=== PATIENT | female | born 2000 | race Caucasian/White ===

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

== ENCOUNTER 2023-03-18 22:06 | Inpatient (IN) | payer BC ==
[2023-03-18 23:20] LABS: Basophils % (A) 1 %; Eosinophils # (A) 0.1 k/uL (0-0.7); Eosinophils % (A) 1 %; HCT 46.2 % (34.0-46.0); HGB 15.9 gm/dL (11.4-16.0); Lymphocytes # (A) 3.5 k/uL (1.0-4.8); Lymphocytes % (A) 39 %; MCH 30.6 pg (25.0-35.0); MCHC 34.3 g/dL (31.0-37.0); MCV 89.2 fL (80.0-100.0); Mean Platelet Volume 7.4; Monocytes # (A) 0.4 k/uL (0-1.0); Monocytes % (A) 5 %; Neutrophils # (A) 4.6 k/uL (1.3-7.7); Neutrophils % (A) 52 %; Platelet Count 412 k/uL (150-450); RBC 5.18 m/uL (3.80-5.40); RDW 12.3 % (11.5-15.5); WBC 8.8 k/uL (3.8-10.6)
--- NOTE | 2023-03-18 23:31 | ED ---
General Adult HPI - General Chief complaint: Extremity Problem,Nontraumatic Stated complaint: Bilaterlal leg numbness Time Seen by Provider: 03/18/23 22:32 Source: patient, RN notes reviewed, old records reviewed Mode of arrival: ambulatory Limitations: no limitations - History of Present Illness Initial comments: 22-year-old female presenting with bilateral lower extremity numbness. Patient noticed this numbness around 4 PM today. She had not noticed any symptoms prior to this. She was evaluated by her mother who is a nurse. Checked for painful stimuli in both legs and noted that there was no sensation. Patient denied any weakness in the legs. She was ambulatory and came to the emergency room through walk in triage. She states she had an upper respiratory infection, nasal congestion and cough one week ago. She had subjective fever and chills at the time. No vomiting or diarrhea. Patient denies any chronic medical conditions. No history of MS. Patient denies chest pain or abdominal pain. She has some mild left-sided low back pain. No injury. No difficulty breathing. Denies current . - Related Data Allergies Allergy/AdvReac Type Severity Reaction Status Date / Time No Known Allergies Allergy Verified 03/18/23 22:21 Review of Systems ROS Statement: Those systems with pertinent positive or pertinent negative responses have been documented in the HPI. ROS Other: All systems not noted in ROS Statement are negative. Past Medical History Past Medical History: No Reported History History of Any Multi-Drug Resistant Organisms: None Reported Past Surgical History: No Surgical Hx Reported Past Psychological History: No Psychological Hx Reported Smoking Status: Current every day smoker Past Alcohol Use History: Occasional Past Drug Use History: None Reported General Exam Limitations: no limitations General appearance: alert, in no apparent distress Head exam: Present: atraumatic, normocephalic Eye exam: Present: normal appearance, PERRL ENT exam: Present: normal exam Neck exam: Present: normal inspection. Absent: tenderness, meningismus Respiratory exam: Present: normal lung sounds bilaterally. Absent: respiratory distress, wheezes Cardiovascular Exam: Present: regular rate, normal rhythm GI/Abdominal exam: Present: soft. Absent: distended, tenderness, guarding Extremities exam: Present: normal inspection, normal capillary refill. Absent: pedal edema, calf tenderness Neurological exam: Present: alert, oriented X3, CN II-XII intact, motor sensory deficit (Patient has no sensation to the bilateral lower legs. She has absent patellar reflexes. 5 out of 5 strength in both lower extremities.) Psychiatric exam: Present: flat affect Skin exam: Present: warm, dry, intact Course Vital Signs 03/18/23 03/18/23 03/18/23 22:17 22:45 23:50 Temperature 98.4 F 98.6 F Pulse Rate 76 80 87 Respiratory 20 16 16 Rate Blood Pressure 133/80 133/86 124/77 O2 Sat by Pulse 100 100 98 Oximetry - Reevaluation(s) Reevaluation #1: 03/18/23 [address] Cristiano Costa, covering for neurology. Recommendations made for initial workup in the emergency department. And plan to admit the patient for further evaluation. Medical Decision Making - Medical Decision Making Was pt. sent in by a medical professional or institution (, PA, CARPENTRY INSTRUCTOR, urgent care, hospital, or halfway...) When possible be specific @ -[No] Did you speak to anyone other than the patient for history (EMS, parent, family, police, friend...)? What history was obtained from this source @ -[No] Did you review nursing and triage notes (agree or disagree)? Why? @ -[I reviewed and agree with nursing and triage notes] Were old charts reviewed (outside hosp., previous admission, EMS record, old EKG, old radiological studies, urgent care reports/EKG's, halfway records)? Report findings @ -[No old charts were reviewed] Differential Diagnosis (chest pain, altered mental status, abdominal pain women, abdominal pain men, vaginal bleeding, weakness, fever, dyspnea, syncope, headache, dizziness, GI bleed, back pain, seizure, CVA, palpatations, mental health, musculoskeletal)? @ -Differential CVA Guillain-Jonas, transverse myelitis, Ischemic stroke, hemorrhagic stroke, brain tumor, atypical migraine, Wernicke's encephalopathy, seizure, multiple sclerosis, meningitis, encephalitis, hypoglycemia,, electrolytes disturbance, myasthenia gravis.... This is not meant to be an all-inclusive list EKG interpreted by me (3pts min.). @ Sinus rhythm rate of 71, MS interval 160, QRS duration 81, QTC [address] segment changes X-rays interpreted by me (1pt min.). @ -[Chest x-ray negative for acute cardiac primary findings CT interpreted by me (1pt min.). @ -CT brain negative for intracranial hemorrhage or mass effect U/S interpreted by me (1pt. min.). @ -[None done] What testing was considered but not performed or refused? (CT, X-rays, U/S, lab s)? Why? @ -[None] What meds were considered but not given or refused? Why? @ -[None] Did you discuss the management of the patient with other professionals (professionals i.e. , PA, CARPENTRY INSTRUCTOR, lab, RT, psych nurse, social science professor, account engineer, teacher, co founder and chief strategy officer, shelter case manager)? Give summary @ -[No] Was smoking cessation discussed for >3mins.? @ -[No] Was critical care preformed (if so, how long)? @ -[No] Were there social determinants of health that impacted care today? How? (Homelessness, low income, unemployed, alcoholism, drug addiction, transportation, low edu. Level, literacy, decrease access to med. care, snf, rehab)? @ -[No] Was there de-escalation of care discussed even if they declined (Discuss DNR or withdrawal of care, Hospice)? DNR status @ -[No] What co-morbidities impacted this encounter? (DM, HTN, Smoking, COPD, CAD, Cancer, CVA, ARF, Chemo, Hep., AIDS, mental health diagnosis, sleep apnea, morbid obesity)? @ -[None] Was patient admitted / discharged? Hospital course, mention meds given and route, prescriptions, significant lab abnormalities, going to OR and other per tinent info. @ -22-year-old female with bilateral leg numbness. Strength is 5 out of 5 in the bilateral lower extremities. She has no patellar reflexes. Patient received workup in the emergency department which showed some mild disc bulging the lumbar spine but otherwise workup is negative including CBC, CMP, ESR, CRP, urinalysis, viral panel. Patient will be admitted for neurology consultation. Concern for Guillain-Jonas Undiagnosed new problem with uncertain prognosis? @ -[No] Drug Therapy requiring intensive monitoring for toxicity (Heparin, Nitro, Insulin, Cardizem)? @ -[No] Were any procedures done? @ -[No] Diagnosis/symptom? @ Bilateral lower externally numbness Acute, or Chronic, or Acute on Chronic? @ -Acute Uncomplicated (without systemic symptoms) or Complicated (systemic symptoms)? @ -Complicated Side effects of treatment? @ -[No] Exacerbation, Progression, or Severe Exacerbation? @ -[No] Poses a threat to life or bodily function? How? (Chest pain, USA, IA, pneumonia, PE, COPD, DKA, ARF, appy, cholecystitis, CVA, Diverticulitis, Homicidal, Suicidal, threat to staff... and all critical care pts) @ -Yes, progressive numbness, development of weakness, respiratory failure - Lab Data Result diagrams: 03/18/23 23:12 03/18/23 23:12 Lab Results 03/18/23 03/18/23 03/18/23 Range/Units 23:10 23:12 23:12 WBC 8.8 (3.8-10.6) k/uL RBC 5.18 (3.80-5.40) m/uL Hgb 15.9 (11.4-16.0) gm/dL Hct 46.2 H (34.0-46.0) % MCV 89.2 (80.0-100.0) fL MCH 30.6 (25.0-35.0) pg MCHC 34.3 (31.0-37.0) g/dL RDW 12.3 (11.5-15.5) % Plt Count 412 (150-450) k/uL MPV 7.4 Neutrophils % 52 % Lymphocytes % 39 % Monocytes % 5 % Eosinophils % 1 % Basophils % 1 % Neutrophils # 4.6 (1.3-7.7) k/uL Lymphocytes # 3.5 (1.0-4.8) k/uL Monocytes # 0.4 (0-1.0) k/uL Eosinophils # 0.1 (0-0.7) k/uL Basophils # 0.0 (0-0.2) k/uL ESR 5 (0-20) mm/hr PT 9.9 (9.0-12.0) sec INR 0.9 (<1.2) APTT 26.1 (22.0-30.0) sec Sodium (137-145) mmol/L Potassium (3.5-5.1) mmol/L Chloride (98-107) mmol/L Carbon Dioxide (22-30) mmol/L Anion Gap mmol/L BUN (7-17) mg/dL Creatinine (0.52-1.04) mg/dL Est GFR (CKD-EPI)AfAm (>60 ml/min/1.73 sqM) Est GFR (CKD-EPI)NonAf (>60 ml/min/1.73 sqM) Glucose (74-99) mg/dL Plasma Lactic Acid Stanley (0.7-2.0) mmol/L Calcium (8.4-10.2) mg/dL Total Bilirubin (0.2-1.3) mg/dL AST (14-36) U/L ALT (4-34) U/L Alkaline Phosphatase (38-126) U/L Troponin I (0.000-0.034) ng/mL C-Reactive Protein (<1.0) mg/dL Total Protein (6.3-8.2) g/dL Albumin (3.5-5.0) g/dL Urine Color Urine Appearance (Clear) Urine pH (5.0-8.0) Ur Specific [place] (1.001-1.035) Urine Protein (Negative) Urine Glucose (UA) (Negative) Urine Ketones (Negative) Urine Blood (Negative) Urine Nitrite (Negative) Urine Bilirubin (Negative) Urine Urobilinogen (<2.0) mg/dL Ur Leukocyte Esterase (Negative) Urine HCG, Qual (Not Detectd) Influenza Type A (PCR) Not Detected (Not Detectd) Influenza Type B (PCR) Not Detected (Not Detectd) RSV (PCR) Not Detected (Not Detectd) SARS-CoV-2 (PCR) Not Detected (Not Detectd) 03/18/23 03/18/23 03/18/23 Range/Units 23:12 23:12 23:12 WBC (3.8-10.6) k/uL RBC (3.80-5.40) m/uL Hgb (11.4-16.0) gm/dL Hct (34.0-46.0) % MCV (80.0-100.0) fL MCH (25.0-35.0) pg MCHC (31.0-37.0) g/dL RDW (11.5-15.5) % Plt Count (150-450) k/uL MPV Neutrophils % % Lymphocytes % % Monocytes % % Eosinophils % % Basophils % % Neutrophils # (1.3-7.7) k/uL Lymphocytes # (1.0-4.8) k/uL Monocytes # (0-1.0) k/uL Eosinophils # (0-0.7) k/uL Basophils # (0-0.2) k/uL ESR (0-20) mm/hr PT (9.0-12.0) sec INR (<1.2) APTT (22.0-30.0) sec Sodium 139 (137-145) mmol/L Potassium 4.0 (3.5-5.1) mmol/L Chloride 101 (98-107) mmol/L Carbon Dioxide 24 (22-30) mmol/L Anion Gap 14 mmol/L BUN 16 (7-17) mg/dL Creatinine 0.81 (0.52-1.04) mg/dL Est GFR (CKD-EPI)AfAm >90 (>60 ml/min/1.73 sqM) Est GFR (CKD-EPI)NonAf >90 (>60 ml/min/1.73 sqM) Glucose 94 (74-99) mg/dL Plasma Lactic Acid Stanley 0.8 (0.7-2.0) mmol/L Calcium 9.9 (8.4-10.2) mg/dL Total Bilirubin 0.4 (0.2-1.3) mg/dL AST 28 (14-36) U/L ALT 62 H (4-34) U/L Alkaline Phosphatase 79 (38-126) U/L Troponin I <0.012 (0.000-0.034) ng/mL C-Reactive Protein <0.5 (<1.0) mg/dL Total Protein 9.2 H (6.3-8.2) g/dL Albumin 5.2 H (3.5-5.0) g/dL Urine Color Urine Appearance (Clear) Urine pH (5.0-8.0) Ur Specific [place] (1.001-1.035) Urine Protein (Negative) Urine Glucose (UA) (Negative) Urine Ketones (Negative) Urine Blood (Negative) Urine Nitrite (Negative) Urine Bilirubin (Negative) Urine Urobilinogen (<2.0) mg/dL Ur Leukocyte Esterase (Negative) Urine HCG, Qual (Not Detectd) Influenza Type A (PCR) (Not Detectd) Influenza Type B (PCR) (Not Detectd) RSV (PCR) (Not Detectd) SARS-CoV-2 (PCR) (Not Detectd) 03/18/23 03/18/23 Range/Units 23:23 23:23 WBC (3.8-10.6) k/uL RBC (3.80-5.40) m/uL Hgb (11.4-16.0) gm/dL Hct (34.0-46.0) % MCV (80.0-100.0) fL MCH (25.0-35.0) pg MCHC (31.0-37.0) g/dL RDW (11.5-15.5) % Plt Count (150-450) k/uL MPV Neutrophils % % Lymphocytes % % Monocytes % % Eosinophils % % Basophils % % Neutrophils # (1.3-7.7) k/uL Lymphocytes # (1.0-4.8) k/uL Monocytes # (0-1.0) k/uL Eosinophils # (0-0.7) k/uL Basophils # (0-0.2) k/uL ESR (0-20) mm/hr PT (9.0-12.0) sec INR (<1.2) APTT (22.0-30.0) sec Sodium (137-145) mmol/L Potassium (3.5-5.1) mmol/L Chloride (98-107) mmol/L Carbon Dioxide (22-30) mmol/L Anion Gap mmol/L BUN (7-17) mg/dL Creatinine (0.52-1.04) mg/dL Est GFR (CKD-EPI)AfAm (>60 ml/min/1.73 sqM) Est GFR (CKD-EPI)NonAf (>60 ml/min/1.73 sqM) Glucose (74-99) mg/dL Plasma Lactic Acid Stanley (0.7-2.0) mmol/L Calcium (8.4-10.2) mg/dL Total Bilirubin (0.2-1.3) mg/dL AST (14-36) U/L ALT (4-34) U/L Alkaline Phosphatase (38-126) U/L Troponin I (0.000-0.034) ng/mL C-Reactive Protein (<1.0) mg/dL Total Protein (6.3-8.2) g/dL Albumin (3.5-5.0) g/dL Urine Color Yellow Urine Appearance Clear (Clear) Urine pH 6.0 (5.0-8.0) Ur Specific [place] 1.019 (1.001-1.035) Urine Protein Negative (Negative) Urine Glucose (UA) Negative (Negative) Urine Ketones Negative (Negative) Urine Blood Negative (Negative) Urine Nitrite Negative (Negative) Urine Bilirubin Negative (Negative) Urine Urobilinogen <2.0 (<2.0) mg/dL Ur Leukocyte Esterase Negative (Negative) Urine HCG, Qual Not Detected (Not Detectd) Influenza Type A (PCR) (Not Detectd) Influenza Type B (PCR) (Not Detectd) RSV (PCR) (Not Detectd) SARS-CoV-2 (PCR) (Not Detectd) Disposition Clinical Impression: Bilateral leg numbness Disposition: ADMITTED IP TO THIS [facility] Condition: Stable Is patient prescribed a controlled substance at d/c from ED?: No Referrals: Raquel Paniagua DO [Primary Care Provider] - 1-2 days Time of Disposition: 00:53
[2023-03-18 23:32] LABS: INR 0.9 (<1.2)
[2023-03-18 23:33] LABS: ALT 62 U/L (4-34); AST 28 U/L (14-36); African American GFR (CKD) >90 (>60 ml/min/1.73 sqM); Albumin 5.2 g/dL (3.5-5.0); Alkaline Phosphatase 79 U/L (38-126); Anion Gap 14 mmol/L; Blood Urea Nitrogen 16 mg/dL (7-17); C Reactive Protein <0.5 mg/dL (<1.0); Calcium 9.9 mg/dL (8.4-10.2); Carbon Dioxide 24 mmol/L (22-30); Chloride 101 mmol/L (98-107); Glucose 94 mg/dL (74-99); Non-African American GFR(CKD) >90 (>60 ml/min/1.73 sqM); Partial Thromboplastin Time 26.1 sec (22.0-30.0); Prothrombin Time 9.9 sec (9.0-12.0); Sodium 139 mmol/L (137-145); Total Bilirubin 0.4 mg/dL (0.2-1.3); Total Protein 9.2 g/dL (6.3-8.2)
[2023-03-18 23:40] LABS: Appearance,Urine Clear (Clear); Bilirubin,Urine Negative (Negative); Blood,Urine Negative (Negative); Color,Urine Yellow; Glucose,Urine (UA) Negative (Negative); Ketones,Urine Negative (Negative); Leukocyte Esterase,Urine Negative (Negative); Nitrite,Urine Negative (Negative); Protein,Urine Negative (Negative); Specific Gravity,Urine 1.019 (1.001-1.035); Urobilinogen,Urine <2.0 mg/dL (<2.0)
--- NOTE | 2023-03-19 00:19 | CT ---
EXAMINATION TYPE: CT brain wo con DATE OF EXAM: 03/19/2023 COMPARISON: None INDICATION: Bilateral leg numbness DLP: mGycm, Automated exposure control for dose reduction was used. CONTRAST: None CT of the brain is performed utilizing 3 mm thick sections through the posterior fossa and 3 mm thick sections through the remaining calvarium. Study is performed within 24 hours of arrival to the hosp ital. No abnormal hyperdensity is present to suggest an acute intracranial hemorrhage. No mass lesion is evident. No acute infarcts are evident. Ventricles and sulci are appropriate for the patient age. Paranasal sinuses and mastoid air cells within the [id number] are clear. IMPRESSIONS: 1. No acute intracranial process. Follow-up MRI can be performed as clinically indicated.
--- NOTE | 2023-03-19 00:20 | XR ---
EXAMINATION TYPE: XR chest 2V DATE OF EXAM: 03/19/2023 COMPARISON: None INDICATION: Weakness TECHNIQUE: Frontal and lateral views of the chest are obtained. FINDINGS: The heart size is normal. The pulmonary vasculature is normal. The lungs are clear. IMPRESSION: 1. No acute pulmonary process.
--- NOTE | 2023-03-19 00:24 | CT ---
EXAMINATION TYPE: CT lumbar spine wo con DATE OF EXAM: 03/19/2023 COMPARISON: None HISTORY: Bilateral lower extremity weakness CT DLP: 1138.6 mGycm CONTRAST: None TECHNIQUE: CT of the lumbar spine is performed on a spiral scan at 3 mm thick sections. Reconstructed images are performed in the coronal and sagittal planes. FINDINGS: T12-L1: No focal disc herniation or significant disc bulge is evident. No spinal canal stenosis or neural foraminal stenosis is present. L1-L2: No focal disc herniation or significant disc bulge is evident. No spinal canal stenosis or n eural foraminal stenosis is present L2-L3: Broad-based disc bulge with mild anterior thecal sac contact. No AP spinal canal stenosis is p resent. Neural foramen are patent. L3-L4: Broad-based disc bulge with mild anterior thecal sac flattening. No focal disc herniation is e vident. No spinal canal stenosis or neural foraminal stenosis is present. L4:There is a limbus vertebra of L4, a normal variant. L4-L5: Broad-based disc bulge is mild anterior thecal sac flattening. No AP spinal canal stenosis or neural foraminal stenosis is present. There is some mild facet hypertrophy. L5-S1: Some disc bulge may be present with anterior thecal sac contact. No spinal canal stenosis or n eural foraminal stenosis present. Vertebral alignment appears normal. IMPRESSION: Mild disc bulging is evident L2-3 through L5-S1 with mild anterior thecal sac compression. No stenosi s is evident. Follow-up MRI can be performed as clinically indicated.
[2023-03-19 00:25] LABS: Erythrocyte Sedimentation Rate 5 mm/hr (0-20)
[2023-03-19] MEDS ORDERED: NALOXONE 0.4 MG/ML 1 ML VIAL IV PRN (00:40)
[2023-03-19] MEDS: SODIUM CHLORIDE 0.9% 1,000 ML IV SCH ×2 (01:06→11:08)
--- NOTE | 2023-03-19 13:03 | P.CNNES ---
History of Present Illness Consult date: 03/19/23 Requesting physician: Lawson Dye Reason for Consult: bilateral leg numbness History of Present Illness: This is a 22-year-old woman who is fairly healthy who presented emergency department because of bilateral lower extremity numbness. Patient is accompanied with her mother who is at bedside. Patient stated that about a week ago she had an upper respiratory tract infection in which she had the cough and she had a phlegm was greenish she did not check her temperature at one time she felt the low-grade fever. Then yesterday in the late afternoon she knows that she is having numbness initially she notices in the right lower extremity and she cannot feel entire right lower extremity then when her mom did the examination and ended the needle examination was bilateral lower extremity from the inguinal region and down. He denies of any weakness but she felt her legs were heavy. Denies any urinary or bowel incontinence. Denies any sexual difficulty. Denies of any numbness in the upper extremity or any focal weakness upper 70. Denies any difficulty swallowing or getting her words out. Denies of any visual disturbance. She denies of any similar symptoms like this in the past. Denies of any falls. Some of the workup during this hospital visit consisted of: CBC with differential is hematocrit is 46.2 just borderline elevated otherwise unremarkable. ESR is 5. ERP is less than 0.5. ALT 62. Otherwise rest of chemistry panel is unremarkable. Plasma-Lyte S vein is unremarkable next Urine analysis is unremarkable Urine hCG is not detected Influenza A/the/RSV and SARS-CoV-[address] is [address] of the head is reported as no acute intracranial process. Follow-up MRI can be performed as clinically indicated. I personally reviewed the CT and agree with report. CT lumbar spine is reported as mild disc bulging evident L2-3 2 L5-S1 with mild anterior thecal sac compression. No stenosis evident. Follow-up MRI can be performed as clinically indicated. Past Medical History Past Medical History: No Reported History History of Any Multi-Drug Resistant Organisms: None Reported Past Surgical History: No Surgical Hx Reported Past Psychological History: No Psychological Hx Reported Smoking Status: Vaper Past Alcohol Use History: Occasional Past Drug Use History: None Reported Medications and Allergies Allergies Allergy/AdvReac Type Severity Reaction Status Date / Time No Known Allergies Allergy Verified 03/18/23 22:21 Physical Examination - Vital Signs Vital Signs: Vital Signs Temp Pulse Pulse Resp BP BP Pulse Ox 03/19/23 11:40 98.2 F 72 16 111/71 99 03/19/23 09:30 98.3 F 64 16 118/76 100 03/19/23 02:33 97.9 F 86 17 115/79 100 03/19/23 01:42 85 16 112/74 97 03/18/23 23:50 87 16 124/77 98 03/18/23 22:45 98.6 F 80 16 133/86 100 03/18/23 22:17 98.4 F 76 20 133/80 100 Intake and Output 03/18/23 03/19/23 03/19/23 22:59 06:59 14:59 Intake Total 10 Balance 10 Intake: IV 10 Invasive Line 1 10 Other: Voiding Method Toilet # Voids 1 Weight 99.019 kg 99.019 kg GENERAL: The patient is lying in bed and is not in acute distress. CHEST: No edema in lowers. LUNG: Not labored breathing. NEUROLOGICAL: Higher mental function: The patient is awake, alert, oriented to self, place and time. Patient is following commands. No aphasia and no neglect. Cranial nerves: The pupils are round, equal and reactive to light and accommodation. Visual raymond are full to confrontation throughout. Extraocular movement is intact no nystagmus is noted. Facial sensation is normal to touch throughout. The facial strength is normal throughout. Hearing is normal bilaterally to hand rub. Tongue is midline and moved [id number] without any difficulty. No dysarthria is noted. Shoulder shrug is normal bilaterally. Motor: The strength is 5 over 5 throughout. Normal tone and bulk. Cerebellum: Normal finger to nose bilaterally. Sensation: Sensation is severely decreased from T12/L1 bilaterally on pinprick testing. Has lack of propioception in distal lowers. Reflexes (right/left): right ankle is 1+ to 2+ while left is 0-1+. Otherwise rest are 2+ throughout. Plantars are mute bilaterally. Results - Laboratory Findings CBC and BMP: 03/18/23 23:12 03/18/23 23:12 Abnormal Lab Findings: Abnormal Labs 03/18/23 03/18/23 23:12 23:12 Hct 46.2 H ALT 62 H Total Protein 9.2 H Albumin 5.2 H Assessment and Plan Assessment: This is a 22-year-old young woman who had an upper respiratory tract infection about a week ago and on 03/18/2023 she developed bilateral numbness of lower extremity from the inguinal region down. 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 Plan: I ordered MRI of the thoracic and lumbar stat I consulted anesthesiology team for lumbar puncture. Ordered CSF study with viral CSF panel. Ordered herpes 1 and 2. Ordered TSH, folate, vitamin B12, electrophoresis, immunofixation and HbA1c. Ordered MS panel CSF. Ordered immune globulin a I started the patient on IVIG 2 g per kg for total of 4 days. Consulted the PT and OT for gait. Continue neuro checks On cardiac monitoring. We'll defer the rest of the medical management to primary team The plan is discussed with the patient and her mother was at bedside as well as the primary team Thank you for the consultation Time with Patient: Greater than 30
[2023-03-19] MEDS ORDERED: IMMUNE GLOBULIN (GAMMAGARD) 5 GM in EMPTY BAG 1 BAG IV ONE (14:00)
--- NOTE | 2023-03-19 14:51 | P.HPIM ---
History of Present Illness H&P Date: 03/19/23 Family requesting [facility] to take over care around 10AM. Patient is a 22-year-old female with no significant PMH presents the ED for bilateral lower extremity numbness started around 4 PM yesterday. Patient reports an upper respiratory infection that started 1 week ago. Symptoms have that time included cough productive of green sputum and rhinorrhea. She reports lower extremity numbness that she noticed when she went to the washroom and attempted to take her pants off. She reports no changes in her strength. She denies any bladder or bowel incontinence. She denies any difficulty breathing. She reports complete sensation above her waist. She denies any headache, lower extremity edema, nausea or vomiting, fever or chills, chest pain, shortness of breath, palpitations, changes in urination or bowel habits. No changes in appetite or weight. She denies any dizziness. In the ED, her vital signs are stable. CBC showed hematocrit 46.2. Coagulation panel within normal limits. CMP showed ALT of 62 and albumin of 5.2. TSH within normal limits. CRP less than 0.5. Urinalysis negative. Influenza, RSV, COVID-19 negative. EKG showed normal sinus rhythm. Brain CT was negative. Chest x-ray was negative. Lumbar spine CT showed mild disc bulging L2 to 3 through L5 to S1 with mild anterior thecal sac compression. Patient is admitted for further management of symptoms. Pertinent positives and negatives as discussed in HPI, a complete review of systems was performed and all other systems are negative. 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 Patient has an acute diagnosis of bilateral lower extremity appears with concerns of Guillain-Jonas syndrome that poses a threat to life or bodily function. Patient with no respiratory compromise at this time we'll need to closely monitor. Case discussed with Dr. Costa, plans to start IVIG x 4 days. Start telemetry monitoring. Neurochecks every 4 hours. Anesthesia consulted for LP. MRI thoracic and lumbar spine ordered. TSH, folate acid, vitamin B12, electrophoresis, immunofixation ordered. SCDs for DVT prophylaxis. FULL CODE. I have reviewed the following apprenticeship consultant notes: Neurology note reviewed from 03/19. I have reviewed the results of the following tests: CBC showed hematocrit 46.2. Coagulation panel within normal limits. CMP showed ALT of 62 and albumin of 5.2. TSH within normal limits. CRP less than 0.5. Urinalysis negative. Influenza, RSV, COVID-19 negative. EKG showed normal sinus rhythm. Brain CT was negative. Chest x-ray was negative. Lumbar spine CT showed mild disc bulging L2 to 3 through L5 to S1 with mild anterior thecal sac compression. I have ordered the following tests: Agree with MRI thoracic and lumbar spine ordered. Agree with TSH, folate acid, vitamin B12, electrophoresis, immunofixation ordered. I have discussed the management of this patient with the following physician: Case was discussed with Dr. Costa as mentioned above. This patient has a high risk of morbidity due to the following reasons: Patient has an acute diagnosis of bilateral lower extremity appears with concerns of Guillain-Jonas syndrome that requires close monitoring of respiratory status while receiving IVIG. Past Medical History Past Medical History: No Reported History History of Any Multi-Drug Resistant Organisms: None Reported Past Surgical History: No Surgical Hx Reported Past Psychological History: No Psychological Hx Reported Smoking Status: Vaper Past Alcohol Use History: Occasional Past Drug Use History: None Reported Medications and Allergies Home Medications Medication Instructions Recorded Confirmed Type Larrisia 0.1/20mcg-28 1 tab PO DAILY 03/19/23 03/19/23 History Allergies Allergy/AdvReac Type Severity Reaction Status Date / Time No Known Allergies Allergy Verified 03/19/23 13:24 Physical Exam Vitals: Vital Signs Temp Pulse Pulse Resp BP BP Pulse Ox 03/19/23 11:40 98.2 F 72 16 111/71 99 03/19/23 09:30 98.3 F 64 16 118/76 100 03/19/23 02:33 97.9 F 86 17 115/79 100 03/19/23 01:42 85 16 112/74 97 03/18/23 23:50 87 16 124/77 98 03/18/23 22:45 98.6 F 80 16 133/86 100 03/18/23 22:17 98.4 F 76 20 133/80 100 Intake and Output 03/18/23 03/19/23 03/19/23 22:59 06:59 14:59 Intake Total 370 Balance 370 Intake: IV 20 Invasive Line 1 20 Intake, IV Titration 350 Amount Immune Globulin ( 300 Gammagard) 30 gm In Empty Bag 1 bag @ 35 mls/hr IV .Q8H35M ONE Rx#: [id number] Immune Globulin ( 50 Gammagard) 5 gm In Empty Bag 1 bag @ 35 mls/hr IV .Q1H26M ONE Rx#:[id number] Oral 0 Other: Voiding Method Toilet # Voids 1 2 Weight 99.019 kg 99.019 kg Results CBC & Chem 7: 03/18/23 23:12 03/18/23 23:12 Labs: Abnormal Lab Results - Last 24 Hours (Table) 03/18/23 03/18/23 Range/Units 23:12 23:12 Hct 46.2 H (34.0-46.0) % ALT 62 H (4-34) U/L Total Protein 9.2 H (6.3-8.2) g/dL Albumin 5.2 H (3.5-5.0) g/dL Thrombosis Risk Factor Assmnt - Choose All That Apply Any of the Below Risk Factors Present?: No Other Risk Factors: No Thrombosis Risk Factor Assessment Level: Very Low Risk
[2023-03-19] MEDS ORDERED: IMMUNE GLOBULIN (GAMMAGARD) 30 GM in EMPTY BAG 1 BAG IV SCH (15:00)
--- NOTE | 2023-03-19 15:48 | MR ---
EXAMINATION TYPE: MR tspine/lspine wo/w con DATE OF EXAM: 03/19/2023 3:26 PM CLINICAL INDICATION:Female, 22 years old with history of SANTIAGO LL numbness; COMPARISON: CT 03/19/2023 TECHNIQUE: Multi planar, multi sequence imaging was performed utilizing: T1-weighted, T2-weighted, a nd turbo inversion recovery imaging of the thoracic and lumbar spine. IV Contrast: 10 cc Gadavist FINDINGS: Alignment: The thoracic and lumbar vertebral bodies have preserved heights and alignment. Cord: The conus medullaris and the distal spinal cord appear unremarkable with regards to their signa l intensity and morphology. No abnormal postcontrast enhancement. Bones/Discs: No significant degeneration changes are present. Disc signal is maintained in the thorac ic spine with disc desiccation at L3-L4 and L5-S1. There is a high T1/T2 signal 9 mm area of focal fa t which suppresses on fat suppression sequences. No abnormal postcontrast enhancement. Suspected limb us vertebrae at L4 anteriorly superiorly. THORACIC: No evidence significant spinal canal or neural foraminal stenosis. Spinal cord is within no rmal limits. No abnormal postcontrast enhancement. LUMBAR: T12-L1: No evidence of significant spinal canal stenosis or neural foraminal stenosis. L1-L2: No evidence of significant spinal canal stenosis or neural foraminal stenosis. L2-L3: No evidence of significant spinal canal stenosis or neural foraminal stenosis. L3-L4: Disc bulge and facet joint arthropathy without significant spinal canal stenosis and mild bila teral neural foraminal stenosis. L4-L5: Disc bulge and facet joint arthropathy without significant spinal canal stenosis and without n eural foraminal stenosis. L5-S1: The disc is rounded posterior morphology without significant spinal canal stenosis. Facet join t arthropathy without neural foraminal stenosis. Other findings: None. IMPRESSION: 1. No evidence for acute process. Spinal cord signal is maintained. No abnormal postcontrast enhance ment. No evidence for significant spinal canal or neural foraminal stenosis. 2. Mild degeneration changes worse in the lumbar spine.
[2023-03-19] MEDS ORDERED: LIDOCAINE 2% (PF) 20 MG/ML 5 ML VIAL ONE (16:09)
--- NOTE | 2023-03-19 16:52 | P.PN ---
Subjective Progress Note Date: 03/19/23 Principal diagnosis: 22 y/o F w/ new onset b/l lower extremity paresthesia. No inciting event. Denies bleeding d/o. Anesthesiology service consulted for lumbar puncture. After informed consent including risks, benefits, and alternatives, the patient agreed to proceed w/ lumbar puncture. Patient's lower back prepped and draped. 2% lidocaine 5 ml injected subcutaneously. 20G Quincke needle advanced in L3-4 interspace advanced to CONNOR. + clear CSF. 4 aliquots of 3 ml each obtained by gravity. Patient tolerated well. Objective - Vital Signs Vital signs: Vital Signs Temp 98.2 F 03/19/23 11:40 Pulse 73 03/19/23 15:15 Resp 16 03/19/23 15:15 BP 105/66 03/19/23 15:15 Pulse Ox 100 03/19/23 15:15 FiO2 Intake & Output 03/18/23 03/19/23 03/19/23 18:59 06:59 18:59 Intake Total 370 Balance 370 Weight 99.019 kg Intake: IV 20 Invasive Line 1 20 Intake, IV Titration 350 Amount Immune Globulin ( 300 Gammagard) 30 gm In Empty Bag 1 bag @ 35 mls/hr IV .Q8H35M ONE Rx#: [id number] Immune Globulin ( 50 Gammagard) 5 gm In Empty Bag 1 bag @ 35 mls/hr IV .Q1H26M ONE Rx#:[id number] Oral 0 Other: Voiding Method Toilet # Voids 1 2 - Labs CBC & Chem 7: 03/18/23 23:12 03/18/23 23:12 Labs: Abnormal Lab Results - Last 24 Hours (Table) 03/18/23 03/18/23 Range/Units 23:12 23:12 Hct 46.2 H (34.0-46.0) % ALT 62 H (4-34) U/L Total Protein 9.2 H (6.3-8.2) g/dL Albumin 5.2 H (3.5-5.0) g/dL
[2023-03-19 17:23] LABS: Glucose,CSF 52 mg/dL (40-70); Total Protein,CSF 25 mg/dL (12-60)
[2023-03-19 18:01] LABS: Appearance,CSF Clear; CSF Tube Number 3; CSF Tube Volume 3.5; Nucleated Cells, CSF 4 u/L (0-5); Red Blood Cell,CSF 0 u/L (0-10)
[2023-03-19] MEDS: ACETAMINOPHEN TAB 325 MG TAB PO PRN (19:35)
[2023-03-19] MEDS: ONDANSETRON 4 MG/2 ML VIAL IVP PRN (19:58)
[2023-03-19 23:48] LABS: Protein, Total 7.5 g/dL (6.2-8.2)
[2023-03-20] MEDS ORDERED: KETOROLAC 15 MG/ML 1 ML VIAL IVP STA (00:15)
[2023-03-20] MEDS: SODIUM CHLORIDE 0.9% 1,000 ML IV SCH ×3 (02:24→19:01)
[2023-03-20] MEDS ORDERED: IMMUNE GLOBULIN (GAMMAGARD) 5 GM in EMPTY BAG 1 BAG IV ONE (08:00)
[2023-03-20] MEDS ORDERED: IMMUNE GLOBULIN (GAMMAGARD) 30 GM in EMPTY BAG 1 BAG IV ONE (09:00)
[2023-03-20] MEDS: ACETAMINOPHEN TAB 325 MG TAB PO PRN (09:50)
[2023-03-20] MEDS: ONDANSETRON 4 MG/2 ML VIAL IVP PRN ×2 (09:50→16:57)
--- NOTE | 2023-03-20 12:56 | P.PN ---
Subjective Progress Note Date: 03/20/23 It seems that yesterday in the afternoon late afternoon she had numbness of the hands. Then after she receives IVIG that she felt there is improvement in her symptoms and now she feels more sensation in her feet. She denies of any new neurological issues appear denies of any falls. She has a mild to moderate headache after lumbar puncture appear denies of any nausea and vomiting. Objective - Vital Signs Vital signs: Vital Signs Temp 98.2 F 03/20/23 08:59 Pulse 73 03/20/23 12:01 Resp 16 03/20/23 12:01 BP 103/65 03/20/23 12:01 Pulse Ox 100 03/20/23 12:01 FiO2 Intake & Output 03/19/23 03/20/23 03/20/23 18:59 06:59 18:59 Intake Total 370 270 350 Balance 370 270 350 Intake: IV 20 Invasive Line 1 20 Intake, IV Titration 350 350 Amount Immune Globulin ( 300 300 Gammagard) 30 gm In Empty Bag 1 bag @ 35 mls/hr IV .Q8H35M ONE Rx#: [id number] Immune Globulin ( 50 50 Gammagard) 5 gm In Empty Bag 1 bag @ 35 mls/hr IV .Q1H26M ONE Rx#:[id number] Oral 0 270 Other: Voiding Method Toilet Toilet Toilet # Voids 2 1 2 - Exam GENERAL: The patient is lying in bed and is not in acute distress. NEUROLOGICAL: Higher mental function: The patient is awake, alert, oriented to self, place and time. Patient is following commands. No aphasia and no neglect. Cranial nerves: The pupils are round, equal and reactive to light and accommodation. Visual raymond are full to confrontation throughout. Extraocular movement is intact no nystagmus is noted. Facial sensation is normal to touch throughout. The facial strength is normal throughout. Hearing is normal bilaterally to hand rub. Tongue is midline and moved [id number] without any difficulty. No dysarthria is noted. Shoulder shrug is normal bilaterally. Motor: The strength is 5 over 5 throughout. Normal tone and bulk. Cerebellum: Normal finger to nose bilaterally. Sensation: Sensation is severely decreased from T12/L1 bilaterally on pinprick testing and down but has more sensation in feet compared to yesterday and has decrease sensation throught uppers but seems inconsistent. Propioception in distal lowers are improved Reflexes (right/left): right ankle is 2+ to weak 2. Left is 1+ while left is 0- 1+. Otherwise rest are 2+ throughout. Plantars are mute bilaterally. Some of the workup during this hospital visit consisted of: CBC with differential is hematocrit is 46.2 just borderline elevated otherwise unremarkable. ESR is 5. ERP is less than 0.5. ALT 62. Otherwise rest of chemistry panel is unremarkable. Plasma-Lyte S vein is unremarkable next Vitamin B12: 784, serum folate 12.1, HbA1c: 4.9 Urine analysis is unremarkable Urine hCG is not detected Influenza A/the/RSV and SARS-CoV-[address] PCR is not detect[address] of the head is reported as no acute intracranial process. Follow-up MRI can be performed as clinically indicated. I personally reviewed the CT and agree with report. CT lumbar spine is reported as mild disc bulging evident L2-3 2 L5-S1 with mild anterior thecal sac compression. No stenosis evident. Follow-up MRI can be performed as clinically indicated. CSF study: Clear, colorless, red blood cells 0, nuclear cells is 4, glucose is 52, protein is 25. IgA 166 (normal) PEP total protein 7.5 (normal). MRI Thoracic/Lumbar w/ and w/o: His reported as no evidence for acute process. Spinal cord signal is maintained. No abnormal postcontrast enhancement. No evidence for signal spinal canal or neuroforaminal stenosis. Mild degeneration changes worse in the lumbar spine. - Labs CBC & Chem 7: 03/18/23 23:12 03/18/23 23:12 Assessment and Plan Assessment: This is a 22-year-old young woman who had an upper respiratory tract infection about a week ago and on 03/18/2023 she developed bilateral numbness of lower extremity from the inguinal region down. Then later in the afternoon she had numbness in the hands. 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 Her CSF study, MRI T/L spine is normal. Possible CSF study is normal since it is early onces GBS. But clinically appears GBS. Cannot rule out Demylinating disease but I feel unlikely--symptoms improving after IVIG. Plan: Today is day#2/4 of IVIG. I ordered MRI Brain and C-spine w/ and w/o. Pending viral CSF panel. Ordered herpes 1 and 2, immunofixation, MS panel CSF. Can consider repeating CSF study within a couple days to assess if any change in study. Recommend EMG with NCS of lowers first then uppers within 4 weeks as outpatient. Consulted the PT and OT for gait. Continue neuro checks On cardiac monitoring. We'll defer the rest of the medical management to primary team The plan is discussed with the patient and her mother was at bedside as well as the primary team Dr. Dickey will start neurology service tomorrow A.M. Time with Patient: Less than 30
--- NOTE | 2023-03-20 16:52 | P.PN ---
Subjective Progress Note Date: 03/20/23 (Delayed charting seen as approx 1030) Patient is a 22-year-old female with obesity and no other past medical history who presented to the ER for lower extremity numbness. In the ER she underwent an extensive evaluation. Her vital signs within normal limits. Laboratory analysis was remarkable for an ALT of 62, total protein 9.2, albumin 5.2. Influenza A/B/RSV/COVID-[address] testing [address] CT showed no acute process, chest x-ray showed no acute process, lumbar spine CT showed disc bulging at L2-3 through L5-S1 with mild anterior thecal sac compression without stenosis She was admitted for further monitoring and neurology was consulted. She underwent LP which showed a total protein of 25, glucose of 50 to, IgA 166. CT thoracic and lumbar spine shows no acute process with spinal cord signal maintained and no abnormal postcontrast enhancement with mild degenerative changes worse in the lumbar spine. Neurology felt her clinical presentation was consistent with Guillain-Jonas syndrome and she was started on IVIG. Patient seen and examined at bedside. She was seen with Dr. Cristiano Costa. She reports that yesterday after she was having additional bilateral upper extremity numbness. Her left arm is completely back to normal, right arm feels slightly abnormal, her numbness in her lower extremity is greatly improved. She conitnues to have some nausea and a headache. Vital signs reviewed General: nontoxic, no distress, appears at stated age Cardiovascular: S1S2 reg, no murmur, positive posterior tibial pulse bilateral, Lungs: Decreased bs bilateral, no rhonchi, no rales , no accessory muscle use Ext: no gross muscle atrophy, no edema, no contractures Neuro: CN II-XI grossly intact, Proprioception in tact b/l LE, Dr. Costa preformed pin prikc which showed decreased sensation for T12/L1 bilateral but improved frfom yesterday. Psych: Alert, oriented, appropriate affect Assessment: B/l LE weakness, lilely Gullian Imperial Syndrome. Obesity with BMI 38.7 Headache, suspect spinal induce Recent URI Imaging: Reviewed as above Data Review: -A1c 4.9, vitamin B-12 74, folate 12.1, TSH 1.27 Plan: - Discussed with Dr. Costa at [facility], await CSF viral panel, immuno fixation, MS panel and Herpes 1/2, Plan is for MRI brain and C-spine on 03/22. - IVIG D#2/ - Will need EMG as an outpatient in 4 weeks - Await PT/OT evaluation -Encourage oral caffeine intake. Continue with Toradol as needed. If headache continues despite caffeine and Toradol with consider IV caffeine DVT prophylaxis: Early ambulation, SCDs Discussed with: Patient, family Anticipated discharge date: Pending clinical course Anticipated discharge place: Pending clinical course This dictation was prepared using [employer] voice recognition software. Though every attempt is made to correct errors during during dictation some may still exist. Objective - Vital Signs Vital signs: Vital Signs Temp 98.0 F 03/20/23 15:28 Pulse 80 03/20/23 15:28 Resp 16 03/20/23 15:28 BP 104/68 03/20/23 15:28 Pulse Ox 99 03/20/23 15:28 FiO2 Intake & Output 03/19/23 03/20/23 03/20/23 18:59 06:59 18:59 Intake Total 370 270 350 Balance 370 270 350 Intake: IV 20 Invasive Line 1 20 Intake, IV Titration 350 350 Amount Immune Globulin ( 300 300 Gammagard) 30 gm In Empty Bag 1 bag @ 35 mls/hr IV .Q8H35M ONE Rx#: [id number] Immune Globulin ( 50 50 Gammagard) 5 gm In Empty Bag 1 bag @ 35 mls/hr IV .Q1H26M ONE Rx#:[id number] Oral 0 270 Other: Voiding Method Toilet Toilet Toilet # Voids 2 1 2 - Labs CBC & Chem 7: 03/18/23 23:12 03/18/23 23:12 Labs: Microbiology - Last 24 Hours (Table) 03/19/23 16:10 CSF Culture - Preliminary Cerebral Spinal Fluid
[2023-03-20] MEDS: KETOROLAC 15 MG/ML 1 ML VIAL IVP PRN ×2 (16:57→23:25)
[2023-03-20] MEDS ORDERED: NAPROXEN 250 MG TAB PO STA (20:46)
[2023-03-21] MEDS ORDERED: IMMUNE GLOBULIN (GAMMAGARD) 5 GM in EMPTY BAG 1 BAG IV ONE (08:00)
[2023-03-21] MEDS ORDERED: IMMUNE GLOBULIN (GAMMAGARD) 30 GM in EMPTY BAG 1 BAG IV ONE (09:00)
[2023-03-21] MEDS ORDERED: CAFFEINE-SODIUM BENZOATE 500 MG in SODIUM CHLORIDE 0.9% 1,000 ML IVPB ONE (11:00)
--- NOTE | 2023-03-21 11:59 | P.PN ---
Progress Note - Text Progress Note Date: 03/21/23 Asked to see patient in regards to possible spinal headache. Patient is lying flat in bed in a dark room. Patient had a LP 03/19/2020 gauge quinke needle. A headache developed yesterday and has progressively remained 0 out of 10 lying flat with a 10 out of 10 pulsating frontal headache when erect. Platelets are 412. No anticoagulants. Coagulation studies on the were normal. Explained the risks and benefits of a post dural puncture headache treatment with blood patch. Patient wishes to proceed with blood patch. Sterile protocol was used throughout procedure. L3 4 was identified and patient sitting off edge of bed. Betadine 3 was used to clean the patient's back. Lidocaine 1% 3 mL was used as local and was infiltrated. Epidural needle 20- gauge 3-1/2 inches was used in one attempt. Loss of resistance to air obtained. Smooth introduction of 2 mL normal saline. No heme. 15 mL of patient's own blood fairly collected from fresh IV site in left upper extremity. Chlorhexidine was used us clean the skin. 15 mL of patient's own blood was then injected through epidural needle slowly. No transient neurological symptoms were obtained. Headache abated during injection. Needle was then flushed with 2 mL normal saline and withdrawn .Patient tolerated procedure well without complication. Left in care of nurse
[2023-03-21] MEDS: SODIUM CHLORIDE 0.9% 1,000 ML IV SCH (15:52)
--- NOTE | 2023-03-21 16:51 | P.PN ---
Subjective Progress Note Date: 03/21/23 Patient initially seen by Dr. Cristiano Costa. Please refer to his note for details. Patient is a 22-year-old female with recurrent upper respiratory infection, who has developed paresthesias of the lower extremities since Tuesday, 3 days ago. It started with numbness of the right thigh, that extended shortly to 2 the right leg and then the left leg all the way up to the groin. She had some numbness of the hands as well. 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 Patient states that the numbness is receding back, distally towards proximally in the lower limbs. She has a marking on her legs as the numbness is receding backwards. The numbness in the hands has resolved. No symptoms involving the torso. CSF study was normal and MRI thoracic and lumbar spine is normal. Patient is on IVIG and improving. Today is day #3/4. Some of the workup during this hospital visit consisted of: CBC with differential is hematocrit is 46.2 just borderline elevated otherwise unremarkable. ESR is 5. ERP is less than 0.5. ALT 62. Otherwise rest of chemistry panel is unremarkable. Vitamin B12: 784, serum folate 12.1, HbA1c: 4.9 Urine analysis is unremarkable Urine hCG is not detected Influenza A/the/RSV and SARS-CoV-[address] PCR is [address] detect[address] of the head is reported as no acute intracranial process. Follow-up MRI can be performed as clinically indicated. I personally reviewed the CT and agree with report. CT lumbar spine is reported as mild disc bulging evident L2-3 2 L5-S1 with mild anterior thecal sac compression. No stenosis evident. Follow-up MRI can be performed as clinically indicated. CSF study: Clear, colorless, red blood cells 0, nuclear cells is 4, glucose is 52, protein is 25. IgA 166 (normal) PEP total protein 7.5 (normal). MRI Thoracic/Lumbar w/ and w/o: His reported as no evidence for acute process. Spinal cord signal is maintained. No abnormal postcontrast enhancement. No evidence for signal spinal canal or neuroforaminal stenosis. Mild degeneration changes worse in the lumbar spine. I personally reviewed MRI, and agree with the findings. The visualized cervical spine does appear normal. Objective - Vital Signs Vital signs: Vital Signs Temp 97.8 F 03/21/23 16:00 Pulse 81 03/21/23 16:00 Resp 16 03/21/23 16:00 BP 109/69 03/21/23 16:00 Pulse Ox 100 03/21/23 16:00 FiO2 Intake & Output 03/20/23 03/21/23 03/21/23 18:59 06:59 18:59 Intake Total 849 52 1313 Balance 393 01 2960 Intake: IV 10 Invasive Line 2 10 Intake, IV Titration 350 Amount Immune Globulin ( 300 Gammagard) 30 gm In Empty Bag 1 bag @ 35 mls/hr IV .Q8H35M ONE Rx#: [id number] Immune Globulin ( 50 Gammagard) 5 gm In Empty Bag 1 bag @ 35 mls/hr IV .Q1H26M ONE Rx#:[id number] Oral 120 1740 Other: Voiding Method Toilet Toilet # Voids 2 1 1 # Bowel Movements 1 - Exam Patient's mental status, speech and language from shows a normal. Cranial nerves are normal. Muscle strength is normal in the arms and legs distally and proximally. Sensory touch is normal from toes up to mid calf bilaterally and then she has numbness all the way up to the groin bilaterally. The numbness is receding distally to proximally. No numbness in the upper extremities. No ataxia for [id number]-bj-[id number] testing bilaterally. No ataxia for [id number]. Reflexes are 2+ in the upper limbs, 2+ at the knees, 2+ ankles and plantars are downgoing bilaterally. - Labs CBC & Chem 7: 03/18/23 23:12 03/18/23 23:12 Labs: Microbiology - Last 24 Hours (Table) 03/19/23 16:10 CSF Gram Stain - Preliminary Cerebral Spinal Fluid CSF Culture - Preliminary Assessment and Plan Assessment: This is a 22-year-old young woman who had an upper respiratory tract infection about a week ago and on 03/18/2023 she developed bilateral numbness of lower extremity from the inguinal region down. Then later in the afternoon she had numbness in the hands. Possible Guillain-Jonas syndrome clinically due to underlying recent URI. Her CSF study, MRI T/L spine is normal. Possible CSF study is normal since it is early onset GBS. But clinically appears GBS. Transverse myelitis/central demyelinating disease, also high in the differential, given somewhat brisk reflexes, and that the symptoms progressed somewhat proximally to distally. Plan: Today is day#3/4 of IVIG. I ordered MRI Brain and C-spine w/ and w/o. Pending viral CSF panel. Await herpes 1 and 2, immunofixation, MS panel CSF. Patient had undergone epidural blood patch today for post-spinal headache. No need for repeat lumbar puncture. Recommend EMG with NCS of lowers first then uppers within 4 weeks as outpatient. Consulted the PT and OT for gait. Continue neuro checks On cardiac monitoring. We'll defer the rest of the medical management to primary team The plan is discussed with the patient and her was at bedside.
--- NOTE | 2023-03-21 18:58 | P.PN ---
Subjective Progress Note Date: 03/21/23 (delayed charting seen at 1030) Patient is a 22-year-old female with obesity and no other past medical history who presented to the ER for lower extremity numbness. In the ER she underwent an extensive evaluation. Her vital signs within normal limits. Laboratory analysis was remarkable for an ALT of 62, total protein 9.2, albumin 5.2. Influenza A/B/RSV/COVID-[address] testing [address] showed no acute process, chest x-ray showed no acute process, lumbar spine CT showed disc bulging at L2-3 through L5-S1 with mild anterior thecal sac compression without stenosis She was admitted for further monitoring and neurology was consulted. She underwent LP which showed a total protein of 25, glucose of 50 to, IgA 166. CT thoracic and lumbar spine shows no acute process with spinal cord signal maintained and no abnormal postcontrast enhancement with mild degenerative changes worse in the lumbar spine. Neurology felt her clinical presentation was consistent with Guillain-Jonas syndrome and she was started on IVIG. Patient seen and examined at bedside. She continues to have a headache. She states that her numbness in her lower cavities is improving and has completely resolved in her bilateral upper extremities. Her headache is causing her not to be able to concentrate. She also reports that she cannot stand up without a severe headache resulting with nausea. Headache only feels better when lying flat. She is asking to possible blood patch. Vital signs reviewed General: nontoxic, no distress, appears at stated age Cardiovascular: S1S2 reg, no murmur, positive posterior tibial pulse bilateral, Lungs: Decreased bs bilateral, no rhonchi, no rales , no accessory muscle use Ext: no gross muscle atrophy, no edema, no contractures Neuro: CN II-XI grossly intact, Proprioception in tact b/l LE, ight touch intact b/l LE to mid calf and slightly above yesterday Psych: Alert, oriented, appropriate affect Assessment: B/l LE weakness, likely Gullian [place] Syndrome. Spinal headache due to dural puncture for spinal tap Obesity with BMI 38.7 Headache, suspect spinal induce Recent URI Imaging: none new Data Review: Vitals reviewed temperature 98.2, pulse 64, respirations 18, blood pressure 93/61, O2 sat 100% on room air Plan: -Case discussed with Dr. Ko who evaluated the patient and plan is for blood patch to help with spinal headache -Neurology note reviewed: Continue with IVIG, no need for repeat lumbar puncture - IVIG D#3/4 - Will need EMG as an outpatient in 4 weeks - Await PT/OT evaluation - caffeine 250 gm IV X 1 DVT prophylaxis: Early ambulation, SCDs Discussed with: Patient, family Anticipated discharge date: Pending clinical course Anticipated discharge place: Pending clinical course This dictation was prepared using [employer] voice recognition software. Though every attempt is made to correct errors during during dictation some may still exist. Objective - Vital Signs Vital signs: Vital Signs Temp 97.8 F 03/21/23 16:00 Pulse 81 03/21/23 16:00 Resp 16 03/21/23 16:00 BP 109/69 03/21/23 16:00 Pulse Ox 100 03/21/23 16:00 FiO2 Intake & Output 03/20/23 03/21/23 03/21/23 18:59 06:59 18:59 Intake Total 792 12 1332 Balance 302 91 8305 Intake: IV 10 Invasive Line 2 10 Intake, IV Titration 350 Amount Immune Globulin ( 300 Gammagard) 30 gm In Empty Bag 1 bag @ 35 mls/hr IV .Q8H35M ONE Rx#: [id number] Immune Globulin ( 50 Gammagard) 5 gm In Empty Bag 1 bag @ 35 mls/hr IV .Q1H26M ONE Rx#:[id number] Oral 120 2880 Other: Voiding Method Toilet Toilet # Voids 2 1 2 # Bowel Movements 1 - Labs CBC & Chem 7: 03/18/23 23:12 03/18/23 23:12 Labs: Microbiology - Last 24 Hours (Table) 03/19/23 16:10 CSF Gram Stain - Preliminary Cerebral Spinal Fluid CSF Culture - Preliminary
[2023-03-22] MEDS ORDERED: IMMUNE GLOBULIN (GAMMAGARD) 5 GM in EMPTY BAG 1 BAG IV ONE (08:00)
[2023-03-22] MEDS ORDERED: IMMUNE GLOBULIN (GAMMAGARD) 30 GM in EMPTY BAG 1 BAG IV ONE (09:00)
[2023-03-22] MEDS: SODIUM CHLORIDE 0.9% 1,000 ML IV SCH ×2 (09:24→22:08)
[2023-03-22] MEDS ORDERED: BUTALB/APAP/CAFF 50-325-40MG TAB PO PRN (10:53)
[2023-03-22] MEDS: HEPARIN SODIUM,PORCINE/PF 5,000 UNIT/0.5 ML SYRINGE SQ SCH ×2 (11:05→16:05)
[2023-03-22 11:46] LABS: VDRL, Qualitative CSF Nonreactive (Nonreactive)
[2023-03-22] MEDS ORDERED: CAFFEINE-SODIUM BENZOATE 500 MG in SODIUM CHLORIDE 0.9% 1,000 ML IVPB ONE (12:30)
--- NOTE | 2023-03-22 13:19 | P.PN ---
Subjective Progress Note Date: 03/22/23 Patient is a 22-year-old female with obesity and no other past medical history who presented to the ER for lower extremity numbness. In the ER she underwent an extensive evaluation. Her vital signs within normal limits. Laboratory analysis was remarkable for an ALT of 62, total protein 9.2, albumin 5.2. Influenza A/B/RSV/COVID-[address] showed no acute proc ess, chest x-ray showed no acute process, lumbar spine CT showed disc bulging at L2-3 through L5-S1 with mild anterior thecal sac compression without stenosis She was admitted for further monitoring and neurology was consulted. She underwent LP which showed a total protein of 25, glucose of 50 to, IgA 166. CT thoracic and lumbar spine shows no acute process with spinal cord signal maintained and no abnormal postcontrast enhancement with mild degenerative changes worse in the lumbar spine. Neurology felt her clinical presentation was consistent with Guillain-Jonas syndrome and she was started on IVIG. Patient seen and examined at bedside. She complains of her headache returning today. Yesterday after the blood patch she had significant improvement in her headache and was able to get up and ambulate in hallways without difficulty. However today on awaking from sleep she again had a headache where she was unable to sit forward and better get up and ambulate and she had some associated nausea. She describes as a pounding headache. I did talk with her IVIG can also cause a headache and that blood patches are not commonly repeated. LE numbness is getting better Vital signs reviewed General: nontoxic, no distress, appears at stated age Cardiovascular: S1S2 reg, no murmur, positive posterior tibial pulse bilateral, Lungs: Decreased bs bilateral, no rhonchi, no rales , no accessory muscle use Ext: no gross muscle atrophy, no edema, no contractures Neuro: CN II-XI grossly intact, Proprioception in tact b/l LE, ight touch intact b/l LE tojust below knee, slightly improved from yesterday Psych: Alert, oriented, appropriate affect Assessment: B/l LE weakness, likely Gullian [place] Syndrome. Spinal headache due to dural puncture for spinal tap Obesity with BMI 38.7 Headache, suspect spinal induce Recent URI Imaging: none new Data Review: -Vitals reviewed temperature 97.9, pulse 67, respirations 16, blood pressure 95/59, O2 sat 98% on room air Plan: -Case discussed with Dr. Ko of anesthesia. He does not recommend repeat blood patch at this time and does recommend supportive care. He states that 20 mL of blood was injected yesterday and repeat blood patch could increase risk of infection as well as neuro compromise -Case discussed neurology and they're concerned she may have a headache related to IVIG usage. We will try Fioricet and add heparin subcutaneous. -Awaiting MRI results, patient scheduled for 1629 - She is due to complete IVIG tonight at 8 pm - IVIG D#01/25 - Will need EMG as an outpatient in 4 weeks - Await PT/OT evaluation - caffeine 500 mh IV X 1 again DVT prophylaxis: Early ambulation, SCDs Discussed with: Patient, family Anticipated discharge date: Pending clinical course Anticipated discharge place: Pending clinical course This dictation was prepared using [employer] voice recognition software. Though every attempt is made to correct errors during during dictation some may still exist. Objective - Vital Signs Vital signs: Vital Signs Temp 97.9 F 03/22/23 08:00 Pulse 67 03/22/23 08:00 Resp 16 03/22/23 08:00 BP 95/59 03/22/23 08:00 Pulse Ox 98 03/22/23 08:00 FiO2 Intake & Output 03/21/23 03/22/23 03/22/23 18:59 06:59 18:59 Intake Total 2880 540 780 Balance 2880 540 780 Intake: Oral 2880 540 780 Other: Voiding Method Toilet Toilet # Voids 2 2 1 - Labs CBC & Chem 7: 03/18/23 23:12 03/18/23 23:12
[2023-03-22] MEDS: ONDANSETRON 4 MG/2 ML VIAL IVP PRN ×2 (16:05→22:01)
[2023-03-22] MEDS: HYDROcodone/APAP 5-325MG 1 EACH TAB PO PRN ×2 (16:06→21:59)
[2023-03-22 18:29] LABS: Albumin 4.33 g/dL (3.80-4.90); Gamma Globulin 1.44 g/dL (0.70-1.50)
[2023-03-22] MEDS ORDERED: MELATONIN 5 MG TABLET PO SCH (21:00)
[2023-03-23] MEDS: HEPARIN SODIUM,PORCINE/PF 5,000 UNIT/0.5 ML SYRINGE SQ SCH ×2 (00:08→08:31)
[2023-03-23 00:28] VITALS: RESP 14
--- NOTE | 2023-03-23 00:33 | MR ---
EXAMINATION TYPE: MR brain/cspine wo/w DATE OF EXAM: 03/22/2023 COMPARISON: 03/19/2023 CT brain HISTORY: Numbness of legs, and hands, rule out MS. CONTRAST: Performed utilizing 10 mL intravenous Gadavist gadolinium contrast. TECHNIQUE: Multiplanar, multiecho imaging on a 3.0 Ana Paula magnet is performed through the brain. Stud y is performed within 24 hours of arrival to the hospital. The craniovertebral junction is normal. The pituitary is normal. Diffusion-weighted imaging is performed. No abnormal hyperintensity is present to suggest an acute i ntracranial infarct or acute ischemic change. No suspicious signal changes evident. No deep white matter hyperintensities on T2 or inversion recove ry weighted sequences are evident. Signal differentiation appears preserved. Ventricles and sulci are appropriate for the patient age. No abnormal enhancement is evident. IMPRESSIONS: 1. No acute changes pre or postcontrast MRI brain. EXAMINATION TYPE: MR brain/cspine wo/w DATE OF EXAM: 03/22/2023 COMPARISON: None HISTORY: Numbness of legs, and hands, rule out MS. CONTRAST: Performed utilizing 10 mL intravenous Gadavist gadolinium contrast. TECHNIQUE: Multiplanar multiecho imaging on a 3.0 Ana Paula magnet is performed through the cervical spin e. FINDINGS: The craniovertebral junction is normal. Vertebral body alignment is normal. Signal throu gh the spinal cord appears normal. No abnormal hyperintensity is evident. No expansile lesions are id entified. Vertebral body alignment and heights are preserved. Disc heights are preserved. There is no rmal disc hydration. No spinal canal stenosis or neural foraminal stenosis is evident. No abnormal enhancement is evident. IMPRESSIONS: 1. Normal pre and postcontrast MRI cervical spine. No suspicious changes to suggest multiple sclerosi s.
[2023-03-23 05:04] VITALS: TEMP 97.9
[2023-03-23] MEDS: HYDROcodone/APAP 5-325MG 1 EACH TAB PO PRN (08:30)
[2023-03-23] MEDS: ONDANSETRON 4 MG/2 ML VIAL IVP PRN (08:31)
[2023-03-23 08:45] VITALS: BP 108/68; PULSE 60
--- NOTE | 2023-03-23 09:49 | P.DS ---
Providers Date of admission: 03/19/23 00:49 Expected date of discharge: 03/23/23 Attending physician: Farrah Melendez MD Consults: 03/19/23 00:40 Consult Physician Routine Consulting Provider: Cristiano Costa Consult Reason/Comments: B/L Leg numbness Do you want consulting provider notified?: Already Contacted 03/19/23 12:12 Consult to Anesthesia Stat Consulting Provider: Anesthesia,Services Consult Reason/Comments: LP r/o Gullian [place] Primary care physician: Raquel Paniagua Hospital Course: Discharge Diagnosis: B/l LE weakness due to Gullian [place] Syndrome. Spinal headache due to dural puncture for spinal tap Obesity with BMI 38.7 Recent URI Hospital Course: Patient is a 22-year-old female with obesity and no other past medical history who presented to the ER for lower extremity numbness. In the ER she underwent an extensive evaluation. Her vital signs within normal limits. Laboratory analysis was remarkable for an ALT of 62, total protein 9.2, albumin 5.2. Influenza A/B/RSV/COVID-[address] showed no acute process, chest x-ray showed no acute process, lumbar spine CT showed disc bulging at L2-3 through L5-S1 with mild anterior thecal sac compression without stenosis She was admitted for further monitoring and neurology was consulted. She underwent LP which showed a total protein of 25, glucose of 50 to, IgA 166. CT thoracic and lumbar spine shows no acute process with spinal cord signal maintained and no abnormal postcontrast enhancement with mild degenerative changes worse in the lumbar spine. Neurology felt her clinical presentation was consistent with Guillain-Jonas syndrome and she was started on IVIG. She did well and had improvement in her lower extremity numbness each day. She did develop a spinal headache after her lumbar puncture and had a blood patch placed on 03/21 by anesthesia. She underwent MRI brain which showed no acute process. She was determined stable for discharge home. Follow-up: Dr. Cristiano Costa in 2-4 weeks for EMG testing, primary care physician in 2-3 days, she is given a prescription for Willernie to help with a spinal h eadache until this fully resolves. She completed opiate start talking from. Patient seen and examined at bedside. DOing well, REEVES is slowly improving, norco helped better than fioricet. Vital signs reviewed and stable. General: nontoxic, no distress, appears at stated age Derm: warm, dry Cardiovascular: S1S2 reg, no murmur, positive posterior tibial pulse bilateral, Lungs: CTA bilateral, no rhonchi, no rales , no accessory muscle use Neuro: CN II-XI grossly intact, improving lower extremity numbness Psych: Alert, oriented, appropriate affect A total of 35 minutes of time were spent preparing this complex discharge summary. Patient was discharged on 03/23/23. This dictation was prepared using [employer] voice recognition software. Though every attempt is made to correct errors during during dictation some may still exist. Patient Condition at Discharge: Stable Plan - Discharge Summary Discharge Rx Participant: No New Discharge Prescriptions: New HYDROcodone/APAP 5-325MG [Will[place] 5-325] 1 each PO Q6HR PRN #18 tab PRN Reason: Pain Continue Larrisia 0.1/20mcg-28 1 tab PO DAILY Discharge Medication List Larrisia 0.1/20mcg-28 1 tab PO DAILY 03/19/23 [History] HYDROcodone/APAP 5-325MG [Willernie 5-325] 1 each PO Q6HR PRN #18 tab 03/23/23 [Rx] Follow up Appointment(s)/Referral(s): Raquel Paniagua DO [Primary Care Provider] - 1-2 days Cristiano Costa MD [STAFF PHYSICIAN] - 1 Week Activity/Diet/Wound Care/Special Instructions: Activity: as tolerated Diet: Regular Special Instructions: Follow with Dr. Costa for nerve conduction study You can alternate Willernie and Motrin 600 mg. Motrin up to 600 mg can be take every 6 hours as needed for headache Thank you for trusting us with your care. We wish you well on your journey to better health. Discharge Disposition: HOME SELF-CARE
--- NOTE | 2023-03-23 11:15 | P.PN ---
Subjective Progress Note Date: 03/22/23 03/22/2023: Patient was seen for follow-up. Patient's was also present today. Patient states her numbness has further improved proximally. Patient had developed post-spinal headache. Patient had undergone epidural blood patch, but the headache persisted. Patient requested a second epidural patch, and anesthesia was consulted and they did not believe the second epidural patch will help. Patient taking excessive amount of caffeine, Fioricet not helping. She has received Toradol. Patient states that when she sits up, the headache is 8/10 when walking it is 8/10 and when she lays down, it is 0/10. At present she rates it 5/10. Telemetry monitoring showing sinus rhythm, with sinus bradycardia while sleeping. 03/21/2023: Patient initially seen by Dr. Cristiano Costa. Please refer to his note for details. Patient is a 22-year-old female with recurrent upper respiratory infection, who has developed paresthesias of the lower extremities since Tuesday, 3 days ago. It started with numbness of the right thigh, that extended shortly to 2 the right leg and then the left leg all the way up to the groin. She had some numbness of the hands as well. 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 Patient states that the numbness is receding back, distally towards proximally in the lower limbs. She has a marking on her legs as the numbness is receding backwards. The numbness in the hands has resolved. No symptoms involving the torso. CSF study was normal and MRI thoracic and lumbar spine is normal. Patient is on IVIG and improving. Today is day #3/4. Some of the workup during this hospital visit consisted of: CBC with differential is hematocrit is 46.2 just borderline elevated otherwise unremarkable. ESR is 5. ERP is less than 0.5. ALT 62. Otherwise rest of chemistry panel is unremarkable. Vitamin B12: 784, serum folate 12.1, HbA1c: 4.9 Urine analysis is unremarkable Urine hCG is not detected Influenza A/the/RSV and SARS-CoV-[address] PCR is [address] of the head is reported as no acute intracranial process. Follow-up MRI can be performed as clinically indicated. I personally reviewed the CT and agree with report. CT lumbar spine is reported as mild disc bulging evident L2-3 2 L5-S1 with mild anterior thecal sac compression. No stenosis evident. Follow-up MRI can be performed as clinically indicated. CSF study: Clear, colorless, red blood cells 0, nuclear cells is 4, glucose is 52, protein is 25. CSF complains of a viral panel negative. IgA 166 (normal) PEP total protein 7.5 (normal). Immune fixation electrophoresis negative. MRI Thoracic/Lumbar w/ and w/o: His reported as no evidence for acute process. Spinal cord signal is maintained. No abnormal postcontrast enhancement. No evidence for signal spinal canal or neuroforaminal stenosis. Mild degeneration changes worse in the lumbar spine. I personally reviewed MRI, and agree with the findings. The visualized cervical spine does appear normal. Objective - Vital Signs Vital signs: Vital Signs Temp 98 F 03/22/23 16:00 Pulse 67 03/22/23 16:00 Resp 16 03/22/23 16:00 BP 133/79 03/22/23 16:00 Pulse Ox 100 03/22/23 16:00 FiO2 Intake & Output 03/22/23 03/22/23 03/23/23 06:59 18:59 06:59 Intake Total 540 1320 Balance 540 1320 Intake: Oral 540 1320 Other: Voiding Method Toilet Toilet # Voids 2 2 - Exam Patient's mental status, speech and language from shows a normal. Cranial nerves are normal. Muscle strength is normal in the arms and legs distally and proximally. Sensory touch is normal from toes up to the lower thighs bilaterally and then she has numbness all the way up to the groin bilaterally. The numbness is receding distally to proximally. No numbness in the upper extremities. No ataxia for [id number] testing bilaterally. No ataxia for [id number]. Reflexes are 2+ in the upper limbs, 2+ at the knees, 2+ ankles and plantars are downgoing bilaterally. - Labs CBC & Chem 7: 03/18/23 23:12 03/18/23 23:12 Labs: Microbiology - Last 24 Hours (Table) 03/19/23 16:10 CSF Gram Stain - Preliminary Cerebral Spinal Fluid CSF Culture - Preliminary Assessment and Plan Assessment: This is a 22-year-old young woman who had an upper respiratory tract infection about a week ago and on 03/18/2023 she developed bilateral numbness of lower extremity from the inguinal region down. Then later in the afternoon she had numbness in the hands. Possible Guillain-Jonas syndrome clinically due to underlying recent URI. Her CSF study, MRI T/L spine is normal. Possible CSF study is normal since it is early onset GBS. But clinically appears GBS. Transverse myelitis/central demyelinating disease, also high in the differential, given somewhat brisk reflexes, and that the symptoms progressed somewhat proximally to distally. Plan: Today is day#4/4 of IVIG. Patient has completed treatment with IVIG. MRI Brain with and without contrast is normal. MRI of the cervical spine with and without contrast normal. I personally reviewed MRI of the brain and cervical spine and agree with the findings. Viral CSF comprehensive panel negative. Await herpes 1 and 2, immunofixation, MS panel CSF. Patient had undergone epidural blood patch today for post-spinal headache. No need for second epidural patching as per anesthesia. Recommend EMG with NCS of lowers first then uppers within 4 weeks as outpatient. Consulted the PT and OT for gait. Continue neuro checks On cardiac monitoring. We'll defer the rest of the medical management to primary team The plan is discussed with the patient and her was at bedside. Neurologically clear for discharge, if she is remains stable overnight. Discussed with primary physician in detail. Pending CSF before meals level, MS panel and myelin basic protein.
[2023-03-23 12:30] LABS: IgG - CSF 1.8 mg/dL (0.0 - 3.4)
[2023-03-24 07:14] LABS: Herpes simplex I and/or II IgM 0.89 INDEX (<=0.90); Herpes simplex IgG I Ab 44.4 (< or = 0.90); Herpes simplex IgG II Ab 3.58 (< or = 0.90)
== END 2023-03-23 13:01 | disposition home or self-care (01) | DRG 96 ==
LOC: EC 22:06 → 3SCARD 03-19 00:49
PROVIDERS: ADMIT Family Medicine; ATTEND Family Medicine
PROC: 009U3ZX Drainage of Spinal Canal, Percutaneous Approach, Diagnostic (ICD-10-PCS; principal; 2023-03-19)
PROC: 3E0R3GC Introduction of Other Therapeutic Substance into Spinal Canal, Percutaneous Approach (ICD-10-PCS; 2023-03-21)
DX: G61.0 Guillain-Barre syndrome (principal); E66.9 Obesity, unspecified; Z68.38 Body mass index [BMI] 38.0-38.9, adult; F17.210 Nicotine dependence, cigarettes, uncomplicated; G97.1 Other reaction to spinal and lumbar puncture; Z28.310 Unvaccinated for COVID-19; Z28.21 Immunization not carried out because of patient refusal; Z20.822 Contact with and (suspected) exposure to COVID-19; Y84.4 Aspiration of fluid as the cause of abnormal reaction of the patient, or of later complication, without mention of misadventure at the time of the procedure
CPT/HCPCS: 36415; 62270; 62273; 70450; 70553; 71046; 72131; 72156; 72157; 72158; 80053; 81003; 81025; 82040; 82042; 82164; 82607; 82746; 82784; 82945; 83036; 83605; 83873; 83916; 84157; 84165; 84443; 84484; 85025; 85610; 85652; 85730; 86140; 86334; 86592; 86694; 86695; 86696; 87070; 87205; 87252; 87529; 87636; 89050; 93005; 94760; 96360; 99285

== ENCOUNTER 2023-05-12 17:28 | Emergency (ER) | payer BC ==
[2023-05-12 17:34] VITALS: RESP 18; TEMP 98.4
[2023-05-12] MEDS ORDERED: predniSONE 20 MG TAB PO STA (17:55)
[2023-05-12] MEDS ORDERED: valACYclovir HCL 1,000 MG TABLET PO STA (17:56)
--- NOTE | 2023-05-12 18:35 | ED ---
Neuro HPI - General Chief Complaint: Neuro Symptoms/Deficit Stated Complaint: L facial drooping Time Seen by Provider: 05/12/23 17:40 Source: patient Mode of arrival: ambulatory Limitations: no limitations - History of Present Illness Is the patient presenting with stroke symptoms?: Yes Last Known Well Date: 05/12/23 Last Known Well Time: 09:00 -: hour(s) Initial Comments: This patient is a 22-year-old woman who presents to have evaluation of left-mitali ed facial weakness and numbness. She states that she had noted it this morning when she got up. The patient also complains that she is having some weakness of the left eyelid and that her eye feels dry. Patient and mother were concerned because she has had history of Guillain-Jonas years ago after having had a viral infection. They have been seen in the clinic and were sent to have reevaluation in emergency department. The patient denies headache. No fever or chills. Location: left face History of same: No Place: home Severity: moderate Quality: weak, numb Improves With: none Worsens With: none On Anticoagulants: No Context: sudden onset Associated Symptoms: denies other symptoms Treatments Prior to Arrival: none - Related Data Home Medications: Home Medications Medication Instructions Recorded Confirmed EPINEPHrine (Auto Inject) [Epipen] 0.3 mg IM ONCE PRN 05/12/23 05/12/23 Previous Rx's Medication Instructions Recorded predniSONE 60 mg PO DAILY #42 tab 05/12/23 valACYclovir HCL [Valacyclovir] 1,000 mg PO TID #21 tab 05/12/23 Allergies/Adverse Reactions: Allergies Allergy/AdvReac Type Severity Reaction Status Date / Time No Known Allergies Allergy Verified 05/12/23 18:06 Review of Systems ROS Statement: Those systems with pertinent positive or pertinent negative responses have been documented in the HPI. ROS Other: All systems not noted in ROS Statement are negative. Constitutional: Denies: fever, chills, weakness Eyes: Reports: eye discharge (Left eye drainage) ENT: Denies: ear pain, dental pain Respiratory: Denies: cough, dyspnea Cardiovascular: Denies: chest pain, syncope Gastrointestinal: Denies: abdominal pain, vomiting Genitourinary: Denies: dysuria, hematuria Musculoskeletal: Denies: back pain Skin: Denies: rash Neurological: Reports: as per HPI, weakness, numbness. Denies: headache, confusion General Exam Limitations: no limitations General appearance: alert, in no apparent distress Head exam: Present: atraumatic, normocephalic Eye exam: Present: PERRL, EOMI. Absent: scleral icterus, conjunctival injection, nystagmus, periorbital swelling, periorbital tenderness ENT exam: Present: normal oropharynx, TM's normal bilaterally Neck exam: Present: normal inspection, full ROM. Absent: tenderness, meningismus, lymphadenopathy Respiratory exam: Present: normal lung sounds bilaterally. Absent: respiratory distress, wheezes, rales, rhonchi, stridor Cardiovascular Exam: Present: regular rate, normal rhythm, normal heart sounds. Absent: systolic murmur, diastolic murmur, rubs, gallop GI/Abdominal exam: Present: soft. Absent: distended, tenderness, guarding, rebound Extremities exam: Present: normal inspection, normal capillary refill. Absent: pedal edema, calf tenderness Back exam: Present: normal inspection. Absent: CVA tenderness (R), CVA tenderness (L) Neurological exam: Present: alert, oriented X3. Absent: CN II-XII intact, motor sensory deficit Expanded Neurological exam: Present: protecting the airway Patient oriented to: Present: person, place, time Speech: Present: fluid speech Cranial nerves: EOM's Intact: Normal, Gag Reflex: Normal, Tongue Deviation: Normal, Facial Sensation: Normal, Facial Palsy without Forehead Movement: Abnormal Left Cerebellar function: Finger to Nose: Normal Upper motor neuron: Tim Neglect: Normal, Pronator Drift: Normal Sensory exam: Upper Extremity Light Touch: Normal, Lower Extremity Light Touch: Normal Motor strength exam: RUE: 5, LUE: 5, RLE: 5, LLE: 5 Eye Response: (4) open spontaneously Motor Response: (6) obeys commands Verbal Response: (5) oriented Skin exam: Present: warm, dry, intact, normal color. 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 Discussed appropriate further care and follow-up. The patient is started on prednisone and will continue prescription. They do have a neurologist and are going to follow with neurology, we discussed appropriate further care and return parameters. Was pt. sent in by a medical professional or institution (Dr., PA, [employer], urgent care, hospital, or usp...) When possible be specific @ -Sent from clinic Did you speak to anyone other than the patient for history (EMS, parent, family, police, friend...)? What history was obtained from this source @ -[Parent gives additional history Did you review nursing and triage notes (agree or disagree)? Why? @ -[I reviewed and agree with nursing and triage notes] Were old charts reviewed (outside hosp., previous admission, EMS record, old EKG, old radiological studies, urgent care reports/EKG's, usp records)? Report findings @ -[No old charts were reviewed] Differential Diagnosis (chest pain, altered mental status, abdominal pain women, abdominal pain men, vaginal bleeding, weakness, fever, dyspnea, syncope, headache, dizziness, GI bleed, back pain, seizure, CVA, palpatations, mental health, musculoskeletal)? @ -[The differential diagnosis includes Lynch's palsy, stroke EKG interpreted by me (3pts min.). @ -[As above] X-rays interpreted by me (1pt min.). @ -[None done] CT interpreted by me (1pt min.). @ -[None done] U/S interpreted by me (1pt. min.). @ -[None done] What testing was considered but not performed or refused? (CT, X-rays, U/S, labs)? Why? @ -[None] What meds were considered but not given or refused? Why? @ -[None] Did you discuss the management of the patient with other professionals (professionals i.e. , PA, [employer], lab, RT, psych nurse, high school social science teacher, floor service worker spring, teacher, physics technical officer, shoe caser)? Give summary @ -[No] Was smoking cessation discussed for >3mins.? @ -[No] Was critical care preformed (if so, how long)? @ -[No] Were there social determinants of health that impacted care today? How? (Homelessness, low income, unemployed, alcoholism, drug addiction, transportation, low edu. Level, literacy, decrease access to med. care, assisted, rehab)? @ -[No] Was there de-escalation of care discussed even if they declined (Discuss DNR or withdrawal of care, Hospice)? DNR status @ -[No] What co-morbidities impacted this encounter? (DM, HTN, Smoking, COPD, CAD, Cancer, CVA, ARF, Chemo, Hep., AIDS, mental health diagnosis, sleep apnea, morbid obesity)? @ -[None] Was patient admitted / discharged? Hospital course, mention meds given and route, prescriptions, significant lab abnormalities, going to OR and other pertinent info. @ -[Discharged, see above Undiagnosed new problem with uncertain prognosis? @ -[No] Drug Therapy requiring intensive monitoring for toxicity (Heparin, Nitro, Insulin, Cardizem)? @ -[No] Were any procedures done? @ -[No] Diagnosis/symptom? @ -[Acute left-sided facial weakness secondary to Lynch's palsy Acute, or Chronic, or Acute on Chronic? @ -[Acute Uncomplicated (without systemic symptoms) or Complicated (systemic symptoms)? @ -[Uncomplicated Side effects of treatment? @ -[No] Exacerbation, Progression, or Severe Exacerbation? @ -[No] Poses a threat to life or bodily function? How? (Chest pain, [place], [place], pneumonia, PE, COPD, DKA, ARF, appy, cholecystitis, CVA, Diverticulitis, Homicidal, Suicidal, threat to staff... and all critical care pts) @ -[No Past Medical History Past Medical History: No Reported History Additional Past Medical History / Comment(s): Guillain-Jonas syndrome History of Any Multi-Drug Resistant Organisms: None Reported Past Surgical History: No Surgical Hx Reported Past Psychological History: No Psychological Hx Reported Smoking Status: Vaper Past Alcohol Use History: Occasional Past Drug Use History: None Reported Course Vital Signs 05/12/23 05/12/23 17:28 19:10 Temperature 98.4 F Pulse Rate 98 78 Respiratory 18 18 Rate Blood Pressure 135/84 122/74 O2 Sat by Pulse 95 99 Oximetry Disposition Clinical Impression: Lynch's palsy Disposition: HOME SELF-CARE Condition: Good Prescriptions: predniSONE 60 mg PO DAILY #42 tab valACYclovir HCL [Valacyclovir] 1,000 mg PO TID #21 tab Is patient prescribed a controlled substance at d/c from ED?: No Referrals: Raquel Paniagua DO [Primary Care Provider] - 1-2 days
[2023-05-12 19:10] VITALS: BP 122/74; PULSE 78
== END 2023-05-12 19:10 | disposition home or self-care (01) ==
LOC: EC 17:28
DX: G51.0 Bell's palsy (principal); F17.290 Nicotine dependence, other tobacco product, uncomplicated
CPT/HCPCS: 99284; J7512